=== PATIENT | female | born 2000 | race Two or more races ===

== ENCOUNTER 2022-01-20 15:58 | Outpatient (CLI) | payer OTHER | END 2022-01-20 16:37 | disposition home or self-care (01) | LOC: PRENATAL 15:58 | PROVIDERS: ATTEND Obstetrics & Gynecology Maternal & Fetal Medicine | DX: O35.0XX0 Maternal care for (suspected) central nervous system malformation in fetus, not applicable or unspecified (principal) ==

== ENCOUNTER 2022-03-24 22:20 | Outpatient (CLI) | payer OTHER ==
[~2022-03-24] VITALS: Ht 157.5 cm; Wt 85.3 kg
[2022-03-24] MEDS ORDERED: PRENATAL TABLE1 EAC3 PO (22:41)
[2022-03-25] MEDS ORDERED: FERRO-TIME325 MG PO (06:59)
[2022-03-25] MEDS ORDERED: MACROBID 100 M100 MG PO (06:59)
== END 2022-03-25 09:38 | disposition home or self-care (01) ==
LOC: OBS/DEL 22:20
PROVIDERS: ATTEND Specialist
DX: O23.43 Unspecified infection of urinary tract in pregnancy, third trimester (principal); O99.013 Anemia complicating pregnancy, third trimester; N39.0 Urinary tract infection, site not specified; Z3A.31 31 weeks gestation of pregnancy; R10.2 Pelvic and perineal pain

== ENCOUNTER 2022-05-02 07:06 | Outpatient (CLI) | payer OTHER ==
[~2022-05-02 07:06] MED LIST: FERRO-TIME325 MG PO; MACROBID 100 M100 MG PO; PRENATAL TABLE1 EAC3 PO
== END 2022-05-02 14:33 | disposition home or self-care (01) ==
LOC: OBS/DEL 07:06 → LDR 07:07 → OBS/DEL 08:09
PROVIDERS: ATTEND Specialist
DX: O47.03 False labor before 37 completed weeks of gestation, third trimester (principal); Z3A.36 36 weeks gestation of pregnancy

== ENCOUNTER 2022-05-18 12:00 | Inpatient (IN) | payer OTHER ==
[~2022-05-18] VITALS: Ht 157.5 cm; Wt 86.2 kg
[2022-05-23] MEDS ORDERED: RHOGAM ULTR1500 UNIT IM (06:51)
[2022-05-25] MEDS ORDERED: FERROUS SULFAT325 MG PO (07:58)
[2022-05-25] MEDS ORDERED: IBU800 MG PO (07:58)
== END 2022-05-26 14:57 | disposition home or self-care (01) | DRG 788 ==
LOC: OB/GYN 05-22 08:23 → LDR 05-22 08:23 → OB/GYN 05-22 17:16
PROVIDERS: ADMIT Specialist; ATTEND Specialist
PROC: 4A1HXCZ Monitoring of Products of Conception, Cardiac Rate, External Approach (ICD-10-PCS; 2022-05-22)
PROC: 10D00Z1 Extraction of Products of Conception, Low, Open Approach (ICD-10-PCS; principal; 2022-05-22 13:00)
DX: O62.0 Primary inadequate contractions (principal); O36.63X0 Maternal care for excessive fetal growth, third trimester, not applicable or unspecified; Z3A.39 39 weeks gestation of pregnancy; Z37.0 Single live birth; Z20.822 Contact with and (suspected) exposure to COVID-19

== ENCOUNTER 2023-05-19 13:46 | Outpatient (CLI) | payer OTHER ==
[~2023-05-19 13:46] MED LIST changes: +FERROUS SULFAT325 MG PO; +IBU800 MG PO; +RHOGAM ULTR1500 UNIT IM
== END 2023-05-19 15:25 | disposition home or self-care (01) ==
LOC: PRENATAL 13:46
PROVIDERS: ATTEND Obstetrics & Gynecology Maternal & Fetal Medicine
DX: O35.9XX0 Maternal care for (suspected) fetal abnormality and damage, unspecified, not applicable or unspecified (principal); O35.3XX0 Maternal care for (suspected) damage to fetus from viral disease in mother, not applicable or unspecified; O34.219 Maternal care for unspecified type scar from previous cesarean delivery; O98.919 Unspecified maternal infectious and parasitic disease complicating pregnancy, unspecified trimester; Z3A.21 21 weeks gestation of pregnancy

== ENCOUNTER 2023-07-01 16:13 | Outpatient (CLI) | payer OTHER | END 2023-07-02 11:46 | disposition home or self-care (01) | LOC: OBS/DEL 16:13 | PROVIDERS: ATTEND Specialist | DX: O26.892 Other specified pregnancy related conditions, second trimester (principal); Z3A.27 27 weeks gestation of pregnancy; S80.211A Abrasion, right knee, initial encounter; W18.39XA Other fall on same level, initial encounter; Y93.89 Activity, other specified; Y92.89 Other specified places as the place of occurrence of the external cause; Y99.8 Other external cause status ==

== ENCOUNTER 2023-08-08 08:41 | Outpatient (CLI) | payer OTHER | END 2023-08-08 09:32 | disposition home or self-care (01) | LOC: PRENATAL 08:41 | PROVIDERS: ATTEND Obstetrics & Gynecology Maternal & Fetal Medicine | DX: O26.849 Uterine size-date discrepancy, unspecified trimester (principal); O36.8199 Decreased fetal movements, unspecified trimester, other fetus; O34.219 Maternal care for unspecified type scar from previous cesarean delivery; O98.919 Unspecified maternal infectious and parasitic disease complicating pregnancy, unspecified trimester; Z3A.32 32 weeks gestation of pregnancy ==

== ENCOUNTER 2023-09-12 07:00 | Inpatient (IN) | payer OTHER ==
[~2023-09-12] VITALS: Ht 157.5 cm; Wt 3.6 kg
[2023-09-19 11:27] LABS: URINE APPEARANCE Clear; URINE BILIRRUBIN Negative (NEGATIVE); URINE BLOOD Negative; URINE COLOR Yellow; URINE GLUCOSE Negative (NEGATIVE); URINE LEUKOCYTE Large; URINE NITRATE Negative; URINE PROTEIN Negative (NEGATIVE)
[2023-09-19 11:28] LABS: HEMATOCRIT 32.1 % (36.0-45.00); MEAN CORPUSCULAR HGB CONC 31.1 g/dl (32.0-36.0); PLATELET COUNT 178 K/uL (150-450); RED BLOOD COUNT 4.75 M/uL (4.00-6.00); RED CELL DISTRIBUTION WIDTH 18.6 % (11.5-14.5)
[2023-09-19 11:30] LABS: MEAN CELL VOLUME 67.7 fL (80.00-100.00)
[2023-09-19 11:33] LABS: URINE BACTERIA 1344.3 uL (0.0-1933); URINE EPITHELIAL CELLS 43.8 uL (0.0-38.8); URINE RBC 2.1 uL (0.0-20.8); URINE WBC 24.7 uL (0.0-23.2)
[2023-09-19 12:14] LABS: INR < 0.93; PARTIAL THROMBOPLASTIN TIME 25.4 SECONDS (22.0-34.0); PROTHROMBIN TIME 9.6 SECONDS (9.0-11.5)
[2023-09-23 02:11] LABS: MEAN CORPUSCULAR HGB CONC 32.6 g/dl (32.0-36.0); RED BLOOD COUNT 4.03 M/uL (4.00-6.00); RED CELL DISTRIBUTION WIDTH 18.7 % (11.5-14.5)
[2023-09-23 02:13] LABS: HEMOGLOBIN 8.8 g/dL (12.0-15.00); MEAN CELL VOLUME 67.1 fL (80.00-100.00); MEAN CORPUSCULAR HEMOGLOBIN 21.8 pg (27.00-32.0); PLATELET COUNT 123 K/uL (150-450)
[2023-09-24] MEDS ORDERED: RHOGAM ULTR1500 UNIT IM (08:46)
[2023-09-25] MEDS ORDERED: IBUPROFEN800 MG PO (08:18)
== END 2023-09-25 11:29 | disposition home or self-care (01) | DRG 788 ==
LOC: OB/GYN 09-22 08:42 → O/R 09-22 08:42 → OB/GYN 09-22 09:15
PROVIDERS: ADMIT Specialist; ATTEND Specialist
PROC: 4A1HXCZ Monitoring of Products of Conception, Cardiac Rate, External Approach (ICD-10-PCS; 2023-09-22)
PROC: 10D00Z1 Extraction of Products of Conception, Low, Open Approach (ICD-10-PCS; principal; 2023-09-22 09:15)
DX: O36.63X0 Maternal care for excessive fetal growth, third trimester, not applicable or unspecified (principal); O34.211 Maternal care for low transverse scar from previous cesarean delivery; Z3A.39 39 weeks gestation of pregnancy; Z37.0 Single live birth; Z20.822 Contact with and (suspected) exposure to COVID-19